=== PATIENT | female | born 2000 | race Asian ===

== ENCOUNTER 2020-06-15 18:55 | Emergency (ER) | payer OTHER ==
[~2020-06-15] VITALS: Ht 170.2 cm; Wt 65.8 kg
--- NOTE | 2020-06-15 19:20 | Emergency Room Report ---
History of Present Illness General Chief Complaint: Female Urogenital Problems Source: Patient Present Illness HPI Disclaimer: Please note that this report is being documented using DRAGON technology. This can lead to erroneous entry secondary to incorrect interpretation by the dictating instrument. HPI: Otherwise healthy 19-year-old female presents for evaluation of flank pain and dark urine. Symptoms began 6 days ago. She noted aching in the right flank which then transition to the left a several days ago. States he has a prior history of pyelonephritis and UTI. Denies dysuria, hematuria, urgency, frequency but notes frothy and cloudy urine over the past few days. Reporting feeling fatigued and feverish 2 days ago with is now resolved. Eating and drinking at baseline. Denies vomiting, abdominal pain, diarrhea. LMP was 05/29. Denies vaginal bleeding or vaginal discharge. No other symptoms reported. PMH: UTI PSH: Denied Allergies: Reviewed Social Hx: Reviewed Allergies: Coded Allergies: No Known Allergies (Unverified , 06/15/20) COVID-19 Screening Contact w/high risk pt: No Experienced COVID-19 symptoms?: No COVID-19 Testing performed PRESS [employer] [place]: No Patient History Last Menstrual Period: 05/29 Nursing Documentation-PMH Past Medical History: No History, Except For Review of Systems All Other Systems: negative except mentioned in HPI Physical Exam Vital Signs Date Time Temp Pulse Resp B/P (MAP) Pulse Ox O2 Delivery O2 Flow Rate FiO2 06/15/20 19:00 99.1 104 18 122/85 (97) 97 Room Air General: Awake and alert, no acute distress HEENT: NC/AT. EOMI. Resp: Normal work of breathing Abdomen: Soft, nontender, nondistended. Back: Mild left-sided CVA tenderness. No CVA tenderness on right. Skin: Intact. No abrasions, laceration or rash over the exposed skin MSK: Normal tone and bulk. Moving all extremities. No obvious deformity. Neuro: Awake and alert. Mentating appropriately Medical Decision Making Diagnostic Impression: Primary Impression: UTI (urinary tract infection) Additional Impression: infection, trichomonal ER Course Is a 19-year-old female presenting for evaluation of dark urine and flank pain. Concern for urinary tract infection or pyelonephritis. Urinalysis consistent with acute UTIs as well as trichomonas. Patient treated with 2 g of Flagyl in the ED. Also given dose of Keflex prior to departure. We will continue Keflex and outpatient basis for treatment of UTI. Low clinical suspicion for pyelonephritis at this time. She is well-appearing, stable vital signs, afebrile. Stable for outpatient follow-up. Instructed to return with new or worsening symptoms. She understands and agrees with this treatment plan. Laboratory Tests Test 06/15/20 19:25 Urine Color Pale yellow Urine Appearance Slightly cloudy Urine pH 5 (4.5-8.0) Urine Specific [place] 1.010 (1.005-1.035) Urine Protein 1+ (NEGATIVE) H Urine Glucose (UA) Negative (NEGATIVE) Urine Ketones Negative (NEGATIVE) Urine Blood 2+ (NEGATIVE) H Urine Nitrite Negative (NEGATIVE) Urine Bilirubin Negative (NEGATIVE) Urine Urobilinogen Normal MG/DL (0.0-1.0) Urine Leukocyte Esterase 2+ (NEGATIVE) H Urine RBC 2-4 /HPF (0 - 2) H Urine WBC 15-20 /HPF (0 - 2) H Urine Squamous Epithelial Cells Many /LPF (NONE/OCC) H Urine Bacteria Moderate /HPF (NONE) H Urine Trichomonas Moderate /HPF (NONE) H Urine HCG, Qualitative Negative (NEGATIVE) Last Vital Signs Date Time Temp Pulse Resp B/P (MAP) Pulse Ox O2 Delivery O2 Flow Rate FiO2 06/15/20 19:00 99.1 104 18 122/85 (97) 97 Room Air Disposition: HOME, SELF-CARE Condition: Stable Scripts Cephalexin* (KEFLEX*) 500 Mg Capsule 500 MG ORAL EVERY 12 HOURS for 7 Days, #14 CAP 0 Refills Prov: Reji Rodriguez MD 06/15/20 Reji Rodriguez MD Jun 15, 2020 19:20
[2020-06-15 19:25] VITALS: BP 122/85
--- NOTE | 2020-06-15 19:25 | NUR ---
ED Nurse Note: Patient presents to ED for c/o flank pain x6 days. She is concerned she has a UTI. Patient states pain is similar to the pain she has had with a UTI in the past. She currently denies pain at this exact moment, but did not want the pain to return at a later time with no relief. She denies dysuria, discharge or frequent urination. AAOX4, breathing is normal and unlabored.
[2020-06-15 19:56] LABS: APPEARANCE,URINE SLIGHTLY CLOUDY; BILIRUBIN, URINE NEGATIVE (NEGATIVE); COLOR,URINE PALE YELLOW; GLUCOSE, URINE (UA) NEGATIVE (NEGATIVE); KETONES,URINE NEGATIVE (NEGATIVE); LEUKOCYTE ESTERASE ,URINE 2+ (NEGATIVE); NITRITE,URINE NEGATIVE (NEGATIVE); PH,URINE 5 (4.5-8.0); PROTEIN,URINE 1+ (NEGATIVE); UROBILINOGEN,URINE NORMAL MG/DL (0.0-1.0)
[2020-06-15] MEDS ORDERED: metroNIDAZOLE 500mg tab ORAL ONE (20:15)
[2020-06-15] MEDS ORDERED: Ciprofloxacin 500mg tab ORAL ONE (20:15)
[2020-06-15] MEDS ORDERED: CEPHALEXIN500 MG ORAL (20:19)
[2020-06-15 20:30] VITALS: BP 121/85
[2020-06-15] MEDS ORDERED: Cephalexin 500mg cap ORAL ONE (20:30)
--- NOTE | 2020-06-15 20:30 | NUR ---
ER DISCHARGE NOTE: Patient is cleared to be discharged per ERMD, pt is aox4, on room air, with stable vital signs. pt was given dc and prescription instructions, pt was able to verbalize understanding, pt id band removed. pt is able to ambulate with steady gait. pt took all belongings.
== END 2020-06-15 20:30 | disposition home or self-care (01) ==
LOC: EMR 19:35
DX: N39.0 Urinary tract infection, site not specified (principal); A59.09 Other urogenital trichomoniasis
CPT/HCPCS: 81003; 81025; 87086; 87181; Z7502; 99283